=== PATIENT | male | born 1975 | race Caucasian/White ===

== ENCOUNTER 2018-07-23 12:23 | Emergency (ER) | payer OTHER ==
[~2018-07-23] VITALS: Ht 182.9 cm; Wt 72.6 kg
[2018-07-23] MEDS ORDERED: DIAZEPAM 2 MG TAB PO ONE (13:45)
[2018-07-23] MEDS ORDERED: DEXAMETHASONE SOD PHOS 10 MG/1 ML VIAL IV ONE (13:45)
[2018-07-23] MEDS ORDERED: KETOROLAC TROMETHAMINE 60 MG/2 ML VIAL IM ONE (15:00)
[2018-07-23] MEDS ORDERED: HYDROCHLOROTHIA25 MG PO (15:15)
[2018-07-23] MEDS ORDERED: LISINOPRIL 10 MG TAB PO ONE (15:15)
[2018-07-23 16:00] VITALS: BP 184/72
== END 2018-07-23 15:58 | disposition home or self-care (01) ==
LOC: ER 12:23
DX: M54.5 Low back pain (principal); S39.012A Strain of muscle, fascia and tendon of lower back, initial encounter; X50.9XXA Other and unspecified overexertion or strenuous movements or postures, initial encounter; Y99.0 Civilian activity done for income or pay; I10 Essential (primary) hypertension; G89.29 Other chronic pain
CPT/HCPCS: 99283; J1100; J1885